=== PATIENT | male | born 1990 | race Hispanic/Latino ===

== ENCOUNTER 2017-04-21 07:18 | Emergency (ER) | payer OTHER ==
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
--- NOTE | 2017-04-21 08:37 | REP ---
Head CT without contrast: History: Closed head injury. Comparison study: No comparison study. CT findings: Bone window settings demonstrate an intact bony calvarium. There is no evidence of skull fracture or incidental bony calvarial lesion. There is minimal left frontal scalp swelling. The visualized paranasal sinuses appear clear. No intraorbital abnormality is seen. On soft tissue window setting images; the lateral, third, and fourth ventricles are normal in size and position. Madrigal-white differentiation pattern is normal above and below the tentorium. There are is no evidence of intracranial hemorrhage. No mass, edema, infarction, or midline shift is seen. No extra-axial fluid collection is appreciated. Impression: There is minimal left frontal scalp swelling, otherwise negative noncontrast head CT. Signed by Faizan Alvarado MD 04/21/2017 08:29 A
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
[2017-04-21] MEDS ORDERED: CYCL5TAB PO (09:00)
[2017-04-21] MEDS ORDERED: IBUP-1022 PO (09:00)
[2017-04-21 09:29] VITALS: BP 124/63
--- NOTE | 2017-04-22 21:22 | ECGEPIP ---
Stationary ECG Study [facility] - ED Test Date: 2017-04-21 Pat Name: GAVINO VIVEROS Department: Room: - Gender: M Logistics Lead: sb : 1990 Requested By: RAFY Mcnamara Order Number: [id number] Reading MD: Tania Mcgill Measurements Intervals [place] Rate: 74 P: 52 MS: 173 QRS: 53 QRSD: 94 T: 28 QT: 372 QTc: 415 Interpretive Statements SINUS RHYTHM ST ELEVATION, PROBABLY EARLY REPOLARIZATION NO PRIOR FOR COMPARISON Electronically Signed On 04-22-2017 21:22:38 EDT by Tania Mcgill
== END 2017-04-21 09:30 | disposition home or self-care (01) ==
LOC: EDBD 07:18 → M ED 08:39
DX: S16.1XXA Strain of muscle, fascia and tendon at neck level, initial encounter (principal); S09.90XA Unspecified injury of head, initial encounter; R07.9 Chest pain, unspecified; F10.120 Alcohol abuse with intoxication, uncomplicated; V49.88XA Car occupant (driver) (passenger) injured in other specified transport accidents, initial encounter; Y92.410 Unspecified street and highway as the place of occurrence of the external cause; F17.210 Nicotine dependence, cigarettes, uncomplicated

== ENCOUNTER 2017-07-17 01:14 | Inpatient (IN) | payer OTHER ==
[~2017-07-17] VITALS: Ht 180.3 cm; Wt 82.0 kg
[~2017-07-17 01:14] MED LIST: CYCL5TAB PO; IBUP-1022 PO
[2017-07-17 02:27] LABS: MEAN CORPUSCULAR HEMOGLOBIN 30.6 pg (27.0-33.0); MEAN CORPUSCULAR HGB CONC 33.5 g/dl (32.0-36.5); MEAN CORPUSCULAR VOLUME 91.5 fl (80.0-96.0); PLATELET COUNT, AUTOMATED 281 10^3/uL (150-450); RED CELL DISTRIBUTION WIDTH 12.5 % (11.5-14.5); WHITE BLOOD COUNT 8.8 10^3/uL (4.0-10.0)
[2017-07-17 02:51] LABS: METHADONE URINE NEGATIVE (NEGATIVE)
[2017-07-17 03:00] LABS: ALBUMIN 4.3 GM/DL (3.2-5.2); ALKALINE PHOSPHATASE 73 U/L (45-117); ALT/SGPT 63 U/L (12-78); ANION GAP 8 MEQ/L (8-16); AST/SGOT 39 U/L (7-37); BILIRUBIN,DIRECT 0.1 MG/DL (0.0-0.2); BILIRUBIN,TOTAL 0.4 MG/DL (0.2-1.0); BLOOD UREA NITROGEN 14 MG/DL (7-18); CALCIUM LEVEL 8.7 MG/DL (8.5-10.1); CARBON DIOXIDE LEVEL 26 MEQ/L (21-32); CHLORIDE LEVEL 105 MEQ/L (98-107); CREATININE FOR GFR 1.14 MG/DL (0.70-1.30); GLOMERULAR FILTRATION RATE > 60.0 (>60); GLUCOSE, FASTING 98 MG/DL (70-105); POTASSIUM SERUM 3.8 MEQ/L (3.5-5.1); SODIUM LEVEL 139 MEQ/L (136-145); TOTAL PROTEIN 7.6 GM/DL (6.4-8.2)
[2017-07-17] MEDS ORDERED: traZODone 50 MG TAB PO PRN (03:45)
[2017-07-17] MEDS ORDERED: MOM 30ML SUSPENSION UDC PO PRN (03:45)
[2017-07-17] MEDS ORDERED: MAALOX 30 ML SUSP *UDC PO PRN (03:45)
[2017-07-17] MEDS ORDERED: ACETAMINOPHEN TAB 650MG DOSE (2X325MG) PO PRN (03:45)
[2017-07-17 05:45] VITALS: BP 137/80
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
[2017-07-17] MEDS ORDERED: hydrOXYzine 50 MG TAB PO PRN (12:30)
[2017-07-17] MEDS: VENLAFAXINE 37.5 MG TAB PO SCH (12:46)
[2017-07-17 18:07] VITALS: BP 140/65
[2017-07-18 06:00] VITALS: BP 124/58
[2017-07-18 08:11] LABS: ALBUMIN 4.1 GM/DL (3.2-5.2); ALBUMIN/GLOBULIN RATIO 1.41 (1.00-1.93); ALKALINE PHOSPHATASE 69 U/L (45-117); ALT/SGPT 70 U/L (12-78); ANION GAP 7 MEQ/L (8-16); AST/SGOT 38 U/L (7-37); BILIRUBIN,TOTAL 0.8 MG/DL (0.2-1.0); BLOOD UREA NITROGEN 15 MG/DL (7-18); CALCIUM LEVEL 9.5 MG/DL (8.5-10.1); CARBON DIOXIDE LEVEL 28 MEQ/L (21-32); CHLORIDE LEVEL 106 MEQ/L (98-107); CREATININE FOR GFR 1.16 MG/DL (0.70-1.30); GLOMERULAR FILTRATION RATE > 60.0 (>60); GLUCOSE, FASTING 88 MG/DL (70-105); POTASSIUM SERUM 4.2 MEQ/L (3.5-5.1); SODIUM LEVEL 141 MEQ/L (136-145)
[2017-07-18] MEDS: VENLAFAXINE 37.5 MG TAB PO SCH (09:02)
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
[2017-07-18 18:00] VITALS: BP 123/58
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
--- NOTE | 2017-07-19 00:40 | ECGEPIP ---
Stationary ECG Study [place] Test Date: 2017-07-17 Pat Name: GAVINO VIVEROS Department: Room: [place] [address] Gender: M Clinical Nursing Instructor: NATHALIE : 1990 Requested By: Korin Miguel Order Number: [id number] Reading MD: Ramirez Mora Measurements Intervals [place] Rate: 64 P: 53 [place]: 186 QRS: 58 QRSD: 97 T: 32 QT: 406 QTc: 421 Interpretive Statements SINUS RHYTHM Early repolarization Prior tracing on 04/21/2017 at 8:35:36. No significant changes Electronically Signed On 07-19-2017 0:40:13 EST by Ramirez Mora
[2017-07-19 06:31] VITALS: BP 116/55
[2017-07-19] MEDS: VENLAFAXINE 37.5 MG TAB PO SCH (09:28)
[2017-07-19] MEDS ORDERED: TRAZO50TA PO (09:49)
[2017-07-19] MEDS ORDERED: VENL37TA PO (09:49)
--- NOTE | 2017-07-19 10:53 | MHDSPDOC ---
[facility] Discharge Summary Discharge Summary DATE OF ADMISSION: Jul 17, 2017 at 03:41 DATE OF DISCHARGE: 2016 DISCHARGE DIAGNOSES: 1. Alcohol induced depression 2. alcohol use disorder REASON FOR ADMISSION: " I had been having very bad thoughts lately. i felt depressed and overwhelmed. i had a lot of knives in my room, I took one and held it against my chest, but then I thought about it and I decided not to do it. I threw the knife away and I contacted my [employer]". History of Present Illness HISTORY OF THE PRESENT ILLNESS: Patient is a 26 -year-old , male, who says he notified his [employer]IG[employer] he didn't feel good and they brought him to the ED. He was having suicidal thoughts, he had knives in his room, he held one with both hands next to his chest, and then, he let it go. After this situation he decided to ask for help to his ABIGAIL. Chaitanya says he never has been diagnosed with a mental illness, he has not taken psychotropic medications and he has never been admitted to a Psychiatric hospital. Chaitanya says he has been very stressed out, he felt overwhelmed and depressed. He says he got a DUI previously, about two months ago. He says this DUI is affecting his career. for some time he didn't know if he was going to stay or if he was going to leave the ( if he was going to be chaptered out). After that incident, he feels they have treated him differently. CONSULTANTS INVOLVED: None TREATMENT AND PROGRESS ON THE UNIT : The patient was slightly guarded and mildly anxious upon admission. He said he felt overwhelmed because he didn't know if he was going to be discharged from the or if he wa going to be able to stay in the [employer]. he admitted having a drinking problem and he was aware it had a lot to do with his job related problems, because while he was drinking he was driving, got a DUI and that created problems for him in the [employer]. Currently he is in the process of being chaptered and he said yesterday it 's probably the best thing that can happen to him, because he will be able to go back to his family and friends, since he felt lonely and unsupported here. He is attending the substance abuse program at [facility] and he says he will try to seek some help because he is aware he suffered because of his father's alcoholism and he wouldn't want to follow his steps. HOSPITAL COURSE: As above DISCHARGE ASSESSMENT: patient was safe to be discharged, he is not suicidal, not homicidal and not psychotic at this time. MENTAL STATUS EXAMINATION ON DISCHARGE: Patient is a 26-year old male, who is alert, cooperative, dressed in hospital clothes, fair hygiene and grooming, with good eye contact. Speech is Spontaneous and fluent. Language skills are Fair Thought processes including: Coherent Thought content: Goal directed. Abstract reasoning, and computation: Fair. Description of associations: Good Description of abnormal or psychotic thoughts: Denies SI/HI, A/V hallucinations , denies thought delusions Judgment: Poor Insight: Limited Orientation to Oriented x 3 Recent and remote memory: Intact Attention span and concentration: Fair Language: Normal Fund of knowledge: Fair Mood: Euthymic. Affect: Euthymic. MEDICATIONS ON DISCHARGE: Scheduled Venlafaxine HCl (Venlafaxine HCl) 37.5 Mg Tab, 37.5 MG PO DAILY for DEPPRESSION , #10 Scheduled PRN Trazodone HCl (Trazodone HCl) 50 Mg Tab, 50 MG PO QHSP PRN for INSOMNIA, #10 PLAN/FOLLOWUP ARRANGEMENTS: [facility] The amount of time spent in the coordination of care for this patient was approximately 30 minutes. Vital Signs/I&Os Vital Signs Date Time Temp Pulse Resp B/P (MAP) Pulse Ox O2 Delivery O2 Flow Rate FiO2 07/19/17 06:31 97.6 55 14 116/55 (75) 07/18/17 06:00 96 07/17/17 05:45 Room Air Medications Scheduled Venlafaxine HCl (Venlafaxine HCl) 37.5 Mg Tab, 37.5 MG PO DAILY for DEPPRESSION , #10 Scheduled PRN Trazodone HCl (Trazodone HCl) 50 Mg Tab, 50 MG PO QHSP PRN for INSOMNIA, #10 Allergies Coded Allergies: No Known Allergies (Unverified , 04/21/17) ALBERTINA CAMEJO MD Jul 19, 2017 10:53
== END 2017-07-19 14:15 | disposition home or self-care (01) | DRG 898 ==
LOC: M ED 01:14 → M ED INP 03:41 → M PSY 04:13
PROVIDERS: ADMIT Psychiatry & Neurology Psychiatry; ATTEND Psychiatry & Neurology Psychiatry
DX: F10.14 Alcohol abuse with alcohol-induced mood disorder (principal); Z81.1 Family history of alcohol abuse and dependence; Z79.899 Other long term (current) drug therapy; F17.210 Nicotine dependence, cigarettes, uncomplicated